=== PATIENT | male | born 1990 | race African-American/Black ===

== ENCOUNTER 2017-12-04 14:14 | Emergency (ER) | payer SELFPAY ==
[2017-12-04 14:52] LABS: Lactic Acid 3.3 mmol/L (0.5-2.2)
[2017-12-04 14:54] LABS: White Blood Cell (WBC) Count 13.1 thou/uL (4.8-10.8)
[2017-12-04 14:55] LABS: Hemoglobin 16.8 g/dL (14.0-18.0); Mean Corpuscular HGB CONC 38.3 g/dL (32.0-36.0); Mean Corpuscular Hemoglobin 29.5 pg (27.0-31.0); Mean Corpuscular Volume 77.1 fL (78.0-98.0); Mean Platelet Volume 8.6 fL (7.4-10.4); Platelet Count 282 thou/uL (130-400); RBC Distribution Width 11.1 % (11.5-14.5); Red Blood Cell (RBC) Count 5.69 mill/uL (4.70-6.10)
[2017-12-04 14:56] LABS: #Neutrophils 10.3 thou/uL (1.40-6.50); %Basophils 1.2 % (0.0-1.0); %Eosinophils 0.1 % (0.0-10.0); %Lymphocytes 14.2 % (21.0-51.0); %Monocytes 5.8 % (0.0-10.0); %Neutrophils 78.8 % (42.0-75.0); ALT (SGPT) 37 U/L (8-55); AST (SGOT) 44 U/L (5-34); Acetaminophen Less than 6.0 mcg/mL (10.0-30.0); Albumin 5.2 g/dL (3.5-5.0); Alcohol Less than 10 mg/dL (Less than 10); Alkaline Phosphatase 86 U/L (40-150); Anion Gap 20 mmol/L (10-20); BUN (Urea Nitrogen) 12 mg/dL (8.9-20.6); CKMB 3.2 ng/mL (0-6.6); Calc. Creatinine Clearance 0 mL/min (70-130); Calcium 11.1 mg/dL (7.8-10.44); Carbon Dioxide 20 mmol/L (22-29); Chloride 105 mmol/L (98-107); Estimated GFR-MDRD 39; Globulin 4.6 g/dL (2.4-3.5); Glucose 140 mg/dL (70-105); Potassium 4.1 mmol/L (3.5-5.1); Protein, Total 9.8 g/dL (6.0-8.3); Salicylate Less than 8.0 mg/dL (15.0-30.0); Sodium 141 mmol/L (136-145); Troponin I 0.012 ng/mL (< 0.028)
[2017-12-04 14:57] LABS: #Basophils 0.2 thou/uL (0.0-0.2); #Lymphocytes 1.9 thou/uL (1.20-3.40); #Monocytes 0.8 thou/uL (0.11-0.59); MDiff Complete? YES
[2017-12-04 15:40] LABS: Amphetamine Detected (NotDetected); Cocaine Metabolite Screen Not Detected (NotDetected); Methamphetamine Detected (NotDetected); Opiate Screen Not Detected (NotDetected); Phencyclidine (PCP) Not Detected (NotDetected); THC/Cannabinoid Screen Not Detected (NotDetected)
[2017-12-04 15:41] LABS: Barbiturates Screen Not Detected (NotDetected); Benzodiazepine Screen Not Detected (NotDetected); Medtox Control Line Valid? VALID (VALID); Methadone Not Detected (NotDetected); Oxycodone Screen Not Detected (NotDetected); Tricyclic Screen Not Detected (NotDetected)
[2017-12-04] MEDS ORDERED: Lorazepam 2 MG/ML VIAL ONE (16:26)
== END 2017-12-04 17:00 | disposition short-term general hospital (02) ==
LOC: BURERS 14:14
DX: N17.9 Acute kidney failure, unspecified (principal); M62.82 Rhabdomyolysis
CPT/HCPCS: 80053; 80306; 80307; 82550; 82553; 83605; 84443; 84484; 85025; 93005; 94760; 96361; 96374; J2060

== ENCOUNTER 2018-10-27 09:25 | Emergency (ER) | payer OTHER, SELFPAY | END 2018-10-27 09:40 | disposition home or self-care (01) | LOC: BURERS 09:25 | DX: I10 Essential (primary) hypertension (principal) | CPT/HCPCS: 99281 ==

== ENCOUNTER 2020-08-07 11:31 | Emergency (ER) | payer SELFPAY | END 2020-08-07 11:55 | disposition home or self-care (01) | LOC: BURERS 11:31 | DX: I10 Essential (primary) hypertension (principal); F17.210 Nicotine dependence, cigarettes, uncomplicated | CPT/HCPCS: 99283 ==

== ENCOUNTER 2020-10-12 07:40 | Emergency (ER) | payer SELFPAY | END 2020-10-12 08:25 | disposition home or self-care (01) | LOC: BURERS 07:40 | DX: K08.89 Other specified disorders of teeth and supporting structures (principal); I10 Essential (primary) hypertension; F17.210 Nicotine dependence, cigarettes, uncomplicated; Z79.899 Other long term (current) drug therapy | CPT/HCPCS: 99283 ==